=== PATIENT | female | born 1970 | race Caucasian/White ===

== ENCOUNTER 2021-10-29 06:39 | Day surgery (SDC) | payer BC ==
[~2021-10-29 06:39] MED LIST: Lactated Ringers 1,000 ML IV SCH
[2021-10-29] MEDS ORDERED: Lactated Ringers 1,000 ML IV SCH (07:00)
[2021-10-29] MEDS ORDERED: Propofol 200 MG/20 ML SDV ONE ×2 (07:53→09:00)
[2021-10-29] MEDS ORDERED: fentaNYL 100 MCG/2 ML SDV ONE (07:53)
--- NOTE | 2021-10-29 10:52 | OR ---
PROCEDURE PERFORMED: Screening colonoscopy. FINDINGS: Normal colonoscopy. Start time 0858, cecum 0909, stop time 0920. BOWEL PREP: [place] class 3. INDICATIONS: Erin Rae is a 51-year-old female here for 1st colonoscopy. She has had no bloody or dark black stools. Her dad did have colon cancer at age 67. PROCEDURE IN DETAIL: Informed consent was obtained. The patient was placed in left lateral decubitus position. MAC anesthesia was induced by Anesthesia colleagues without incident. The colonoscope was introduced in the rectum, advanced all the way up to the cecum. The appendiceal orifice was photographed. The terminal ileum was intubated and photographed to confirm advancement to the cecum. The colonoscope was then slowly withdrawn. No pathology was identified. A retroflexed view was obtained. The colonoscope was removed. The patient was awoken from anesthesia by Anesthesia colleagues without incident. She tolerated the procedure well. Recommend repeat colonoscopy in 5 years. RKM: 10/29/2021 09:29:20 MODL: 10/29/2021 09:55:12 /[id number]
== END 2021-10-29 10:20 | disposition home or self-care (01) ==
LOC: VM.SDS 06:39
PROVIDERS: ATTEND Student in an Organized Health Care Education/Training Program
DX: Z12.11 Encounter for screening for malignant neoplasm of colon (principal); E66.9 Obesity, unspecified; K21.9 Gastro-esophageal reflux disease without esophagitis; E78.00 Pure hypercholesterolemia, unspecified; R73.9 Hyperglycemia, unspecified; Z80.0 Family history of malignant neoplasm of digestive organs; Z79.899 Other long term (current) drug therapy; Z88.0 Allergy status to penicillin; Z88.8 Allergy status to other drugs, medicaments and biological substances; Z68.33 Body mass index [BMI] 33.0-33.9, adult
CPT/HCPCS: 00812; J2704; J3010; J7120